=== PATIENT | female | born 1970 | race Caucasian/White ===

== ENCOUNTER 2017-06-25 19:48 | Emergency (ER) | payer OTHER ==
[~2017-06-25] VITALS: Ht 170.1 cm; Wt 81.6 kg
[2017-06-25 20:07] LABS: BASO % 0.3 % (0.0-1.0); EOS # 0.2 10*3/uL (0.0-0.4); EOS % 2.2 % (1.0-4.0); HEMATOCRIT 37.7 % (37.0-47.0); HEMOGLOBIN 12.6 g/dl (12.0-16.0); LYMPH # 2.7 10*3/uL (1.3-4.4); LYMPH % 27.8 % (27.0-41.0); MEAN CORPUSCULAR HGB 31.7 pg (27.0-31.0); MEAN CORPUSCULAR HGB CONC 33.4 g/dl (33.0-37.0); MEAN PLATELET VOLUME 9.6 fl (9.6-12.3); MONO # 0.8 10*3/uL (0.1-1.0); MONO % 8.5 % (3.0-9.0); PLATELET COUNT AUTOMATED 306 10*3/uL (130-400); RED BLOOD COUNT 3.97 10*6/uL (4.10-5.10); RED CELL DISTRI WIDTH 12.6 % (0-14.5); WHITE BLOOD COUNT 9.9 10*3/uL (4.8-10.8)
[2017-06-25 20:23] LABS: ACT PARTIAL THROMBO TIME 23.1 SECONDS (20.8-31.5); INTERNATIONAL NORM RATIO 0.9 (2.0-3.5)
[2017-06-25 20:24] LABS: ALBUMIN 3.3 gm/dl (3.1-4.5); ALKALINE PHOSPHATASE 64 U/L (45-117); BUN 17 mg/dl (7-24); CHLORIDE 107 mmol/L (98-107); CREATININE 1.27 mg/dL (0.55-1.02); POTASSIUM 3.7 mmol/L (3.5-5.1); SGOT/AST 11 IU/L (3-35); SGPT/ALT 32 U/L (12-78); SODIUM 142 mmol/L (136-145); TOTAL PROTEIN 7.1 gm/dL (6.4-8.2)
[2017-06-25 20:25] LABS: TROPONIN I < 0.015 ng/ml (<0.045)
[2017-06-25] MEDS ORDERED: NORCO 5-325 TA1 EACH PO (22:17)
[2017-06-25] MEDS ORDERED: CLINDAMYCIN150 MG PO (22:17)
[2017-06-25] MEDS ORDERED: NICODERM CQ1 EAC2 TD (22:17)
[2017-06-25] MEDS ORDERED: PROAIR HFA8.5 GM INH (22:17)
[2017-06-25] MEDS ORDERED: DIFLUCAN150 MG PO (22:28)
== END 2017-06-25 22:43 | disposition home or self-care (01) ==
LOC: ED 19:48
PROVIDERS: Emergency Medicine Emergency Medical Services
DX: R07.89 Other chest pain (principal); J20.9 Acute bronchitis, unspecified; Z88.0 Allergy status to penicillin; Z88.8 Allergy status to other drugs, medicaments and biological substances

== ENCOUNTER 2017-06-30 | Emergency (ER) | payer OTHER ==
[~2017-06-30] VITALS: Ht 165.1 cm; Wt 90.7 kg
[~2017-06-30] MED LIST: CLINDAMYCIN150 MG PO; DIFLUCAN150 MG PO; NICODERM CQ1 EAC2 TD; NORCO 5-325 TA1 EACH PO; PROAIR HFA8.5 GM INH
[2017-06-30 00:23] LABS: ACT PARTIAL THROMBO TIME 22.8 SECONDS (20.8-31.5); INTERNATIONAL NORM RATIO 0.9 (2.0-3.5)
[2017-06-30 00:28] LABS: ALBUMIN 3.7 gm/dl (3.1-4.5); ALKALINE PHOSPHATASE 68 U/L (45-117); BASO % 0.5 % (0.0-1.0); BUN 19 mg/dl (7-24); CHLORIDE 103 mmol/L (98-107); CREATININE 0.97 mg/dL (0.55-1.02); EOS # 0.1 10*3/uL (0.0-0.4); EOS % 1.5 % (1.0-4.0); HEMATOCRIT 38.3 % (37.0-47.0); HEMOGLOBIN 13.2 g/dl (12.0-16.0); LYMPH # 3.2 10*3/uL (1.3-4.4); LYMPH % 37.3 % (27.0-41.0); MEAN CELL VOLUME 94.6 fl (81.0-99.0); MEAN CORPUSCULAR HGB 32.6 pg (27.0-31.0); MEAN CORPUSCULAR HGB CONC 34.5 g/dl (33.0-37.0); MEAN PLATELET VOLUME 9.7 fl (9.6-12.3); MONO # 0.7 10*3/uL (0.1-1.0); MONO % 8.1 % (3.0-9.0); NEUT # 4.5 10*3/uL (2.3-7.9); NEUT % 52.4 % (47.0-73.0); PLATELET COUNT AUTOMATED 318 10*3/uL (130-400); POTASSIUM 3.7 mmol/L (3.5-5.1); RED BLOOD COUNT 4.05 10*6/uL (4.10-5.10); RED CELL DISTRI WIDTH 12.5 % (0-14.5); SGOT/AST 16 IU/L (3-35); SGPT/ALT 34 U/L (12-78); SODIUM 139 mmol/L (136-145); TOTAL PROTEIN 7.5 gm/dL (6.4-8.2); WHITE BLOOD COUNT 8.5 10*3/uL (4.8-10.8)
[2017-06-30 00:30] LABS: TROPONIN I < 0.015 ng/ml (<0.045)
== END 2017-06-30 03:15 | disposition home or self-care (01) ==
LOC: ED
PROVIDERS: Student in an Organized Health Care Education/Training Program
DX: R07.89 Other chest pain (principal); R05 Cough; Z88.0 Allergy status to penicillin; Z88.1 Allergy status to other antibiotic agents; Z91.041 Radiographic dye allergy status

== ENCOUNTER 2018-06-20 20:42 | Emergency (ER) | payer OTHER ==
[~2018-06-20] VITALS: Ht 165.1 cm; Wt 94.8 kg
[2018-06-20] MEDS ORDERED: CLINDAMYCIN HC300 MG PO (22:52)
[2018-06-20] MEDS ORDERED: Motrin,Rufen800 MG PO (22:52)
== END 2018-06-20 22:53 | disposition home or self-care (01) ==
LOC: ED 20:42
DX: K08.89 Other specified disorders of teeth and supporting structures (principal); R11.2 Nausea with vomiting, unspecified; Z88.0 Allergy status to penicillin; Z88.8 Allergy status to other drugs, medicaments and biological substances; Z91.041 Radiographic dye allergy status

== ENCOUNTER 2019-03-01 22:17 | Emergency (ER) | payer OTHER ==
[~2019-03-01] VITALS: Ht 160 cm; Wt 95.3 kg
[~2019-03-01 22:17] MED LIST changes: +CLINDAMYCIN HC300 MG PO; +Motrin,Rufen800 MG PO
[2019-03-01 22:48] LABS: BASO % 0.3 % (0.0-1.0); EOS # 0.1 10*3/uL (0.0-0.4); EOS % 0.8 % (1.0-4.0); HEMATOCRIT 42.3 % (37.0-47.0); HEMOGLOBIN 14.1 g/dl (12.0-16.0); LYMPH # 2.3 10*3/uL (1.3-4.4); MEAN CELL VOLUME 96.4 fl (81.0-99.0); MEAN CORPUSCULAR HGB 32.1 pg (27.0-31.0); MEAN CORPUSCULAR HGB CONC 33.3 g/dl (33.0-37.0); MEAN PLATELET VOLUME 9.9 fl (9.6-12.3); MONO # 0.7 10*3/uL (0.1-1.0); MONO % 5.6 % (3.0-9.0); NEUT # 8.5 10*3/uL (2.3-7.9); PLATELET COUNT AUTOMATED 327 10*3/uL (130-400); RED BLOOD COUNT 4.39 10*6/uL (4.10-5.10); WHITE BLOOD COUNT 11.6 10*3/uL (4.8-10.8)
[2019-03-01 23:08] LABS: BILIRUBIN NEGATIVE (NEGATIVE); BLOOD 2+ (NEGATIVE); CLARITY CLEAR (CLEAR); COLOR YELLOW (YELLOW); GLUCOSE NEGATIVE (NEGATIVE); KETONE NEGATIVE (NEGATIVE); LEUKO ESTERASE NEGATIVE (NEGATIVE); NITRITE NEGATIVE (NEGATIVE); PH 5.5 (5.0-9.0); UROBILINOGEN 0.2 E.U./dl (0.2-1.0)
[2019-03-01 23:09] LABS: ALBUMIN 3.8 gm/dl (3.1-4.5); CREATININE 1.37 mg/dL (0.55-1.02); POTASSIUM 3.6 mmol/L (3.5-5.1)
[2019-03-01 23:19] LABS: BACTERIA 1+; MUCOUS 2+
[2019-03-02] MEDS ORDERED: METROGEL-VAGINA70 GM V (00:25)
[2019-03-02] MEDS ORDERED: VIBRAMYCIN100 MG PO (00:25)
[2019-03-05 03:05] LABS: GONOCOCCUS BY NAA Negative (Negative)
== END 2019-03-02 01:45 | disposition home or self-care (01) ==
LOC: ED 22:17
PROVIDERS: Physician Assistant
DX: R10.2 Pelvic and perineal pain (principal); Z98.51 Tubal ligation status; Z91.041 Radiographic dye allergy status; Z88.0 Allergy status to penicillin; Z88.8 Allergy status to other drugs, medicaments and biological substances; Z79.2 Long term (current) use of antibiotics; Z79.899 Other long term (current) drug therapy